=== PATIENT | male | born 1945 | race Caucasian/White ===

== ENCOUNTER 2025-04-13 10:57 | Inpatient (IN) | payer MEDICARE, MEDICAID ==
[2025-04-13] VITALS (10 sets, daily range): BP systolic 134–159; BP diastolic 66–87; PULSE 67–97; RESP 17–20; TEMP 36.1–37.1; O2SAT 93–100
[~2025-04-13] VITALS: Ht 170.2 cm; Wt 81.8 kg
[~2025-04-13 10:57] MED LIST: ALBU2.5V13 NEB; APIX5TAB PO; ASPI-1406 PO; ATOR40TA70 PO; ATROV IH; CLOP75TA33 PO; COR3 PO; MOME13HF11 INH; P20 MT; PARO40TA75 PO; RANO500T6 PO; SACU1TAB7 PO; TAMS-54 MT
[2025-04-13] MEDS ORDERED: CLONIDINE 0.1MG TABLET PO PRN (13:00)
[2025-04-13] MEDS ORDERED: ACETAMINOPHEN 325MG TABLET PO PRN (13:00)
[2025-04-13] MEDS ORDERED: ONDANSETRON HCL 4MG/2ML INJ IV PRN (13:00)
[2025-04-13] MEDS ORDERED: LORAZEPAM 0.5MG TABLET PO PRN (13:00)
[2025-04-13] MEDS ORDERED: GUAIFENESIN 200MG/10ML SUGAR FREE UDC PO PRN (13:00)
[2025-04-13] MEDS ORDERED: RANO500T6 PO (13:42)
[2025-04-13] MEDS ORDERED: FURO40TA5 MT (13:42)
[2025-04-13] MEDS ORDERED: PHEN-815 MT (13:42)
[2025-04-13] MEDS ORDERED: ATOR40TA70 MT (13:42)
[2025-04-13] MEDS ORDERED: APIX5TAB MT (13:42)
[2025-04-13] MEDS ORDERED: TAMS-54 MT (13:42)
[2025-04-13] MEDS ORDERED: INSU100I28 SQ (13:42)
[2025-04-13] MEDS ORDERED: FERR325T6 MT (13:42)
[2025-04-13] MEDS ORDERED: SACU1TAB7 MT (13:42)
[2025-04-13] MEDS ORDERED: ASPI-1497 MT (13:42)
[2025-04-13] MEDS ORDERED: MAGN400T50 MT (13:42)
[2025-04-13] MEDS ORDERED: POTA-203 MT (13:42)
[2025-04-13] MEDS ORDERED: PARO40TA75 MT (13:42)
[2025-04-13] MEDS ORDERED: GABA-1180 MT (13:42)
[2025-04-13] MEDS ORDERED: CLOP75TA33 MT (13:42)
[2025-04-13] MEDS ORDERED: PANT40TA51 MT (13:42)
[2025-04-13] MEDS ORDERED: METF-416 MT (13:42)
[2025-04-13] MEDS ORDERED: INSU100I41 (13:42)
[2025-04-13] MEDS ORDERED: CALC-26 MT (13:42)
[2025-04-13] MEDS ORDERED: CARV25TA47 MT (13:42)
[2025-04-13] MEDS ORDERED: OMEP20CA14 MT (13:42)
[2025-04-13] MEDS ORDERED: MELO-104 MT (13:42)
[2025-04-13] MEDS ORDERED: IPRA3AMP9 HHN (14:01)
[2025-04-13 15:02] LABS: BASOPHILS % 0.9 % (0.0-2.0); EOSINOPHILS % 1.1 % (0.0-5.0); HEMATOCRIT. 24.6 % (42.0-52.0); HEMOGLOBIN. 7.8 g/dL (14.0-18.0); LYMPHOCYTES % 30.2 % (20.0-50.0); MEAN CORPUSCULAR HEMOGLOBIN 29.3 pg (28.0-32.0); MEAN CORPUSCULAR HGB CONC 31.8 g/dL (31.0-37.0); MEAN CORPUSCULAR VOLUME 92.2 fL (80.0-94.0); MEAN PLATELET VOLUME 7.1 fl (7.4-10.4); MONOCYTES % 7.3 % (2.0-8.0); NEUTROPHILS % 60.5 % (40.0-76.0); PLATELET 113 x1000/uL (130-400); RED BLOOD CELL COUNT 2.67 mill/uL (4.7-6.1); RED CELL DISTRIBUTION WIDTH 17.4 % (11.6-14.6); WHITE BLOOD COUNT 2.7 x1000/uL (4.5-11.0)
[2025-04-13 15:11] LABS: CHLORIDE 110 mEq/L (98-107); POTASSIUM 4.1 mEq/L (3.5-5.1); SODIUM 141 mEq/L (136-145)
[2025-04-13 15:12] LABS: CARBON DIOXIDE 26 mEq/L (21-32); INR 1.1; PROTHROMBIN TIME 11.5 sec (9.6-11.0)
[2025-04-13 15:13] LABS: CALCIUM 7.3 mg/dL (8.7-10.4)
[2025-04-13] MEDS ORDERED: DEXTROSE 50% WATER 50ML SYRINGE IV PRN (15:15)
[2025-04-13 15:17] LABS: CREATININE 0.8 mg/dL (0.6-1.3); GLUCOSE 156 mg/dL (70-105)
[2025-04-13 15:18] LABS: UREA NITROGEN BLOOD 11 mg/dL (9-23)
[2025-04-13 15:20] LABS: PHOSPHORUS 1.2 mg/dL (2.5-4.9)
[2025-04-13 16:08] LABS: HEPATITIS B SURFACE ANTIGEN NEGATIVE (Negative)
[2025-04-13] MEDS: DEXT 5%/0.45% NACL 1000ML 1,000 ML IV SCH (16:22)
[2025-04-13] MEDS: BLOOD SUGAR DIAGNOSTIC STRIP TEST SCH (16:23)
[2025-04-13] MEDS: INSULIN LISPRO 100 UNITS/ML SUBCUT SCH (16:23)
[2025-04-13 16:29] LABS: HEPATITIS C AB NON REACTIVE (Neg) (Negative)
[2025-04-13] MEDS ORDERED: LIDOCAINE HCL 1% 20ML VIAL ONE (17:08)
[2025-04-13] MEDS ORDERED: IODIXANOL 320 MG/ML 150ML BOTTLE IV ONE (17:08)
[2025-04-13] MEDS ORDERED: HEPARIN 1000 UNITS/ML 10ML ONE (17:08)
[2025-04-13] MEDS ORDERED: FENTANYL CITRATE/PF 50MCG/ML 2ML VIAL ONE (17:35)
[2025-04-13] MEDS ORDERED: MIDAZOLAM HCL 2 MG/2 ML VIAL ONE (17:35)
[2025-04-13] MEDS ORDERED: ATROPINE SULFATE 1MG/10ML SYR ONE (17:41)
[2025-04-13] MEDS ORDERED: EPINEPHRINE 0.1MG/ML (1:10,000) 10ML SYR ONE (17:41)
[2025-04-13] MEDS ORDERED: IODIXANOL 320MG/ML 100 ML BOTTLE IV ONE (18:03)
[2025-04-13] MEDS ORDERED: CLOPIDOGREL 75MG TABLET ONE (18:29)
[2025-04-13 18:53] LABS: TROPONIN I HIGH SENSITIVITY 13 ng/L (3.0-53)
[2025-04-13] MEDS ORDERED: ATROPINE SULFATE 1MG/10ML SYR IV PRN (19:00)
[2025-04-13] MEDS: SODIUM CHLORIDE 0.45% 1,000 ML IV ONE (19:52)
[2025-04-13] MEDS: IPRATROPIUM/ALBUTEROL 0.5-3(2.5)MG/3ML NEB HHN PRN (20:23)
[2025-04-13] MEDS ORDERED: MAGNESIUM 2 G PREMIX 50 ML IV NR (23:30)
[2025-04-13 23:38] LABS: HEMATOCRIT 23.1 % (42.0-52.0); HEMOGLOBIN 7.7 g/dL (14.0-18.0)
[2025-04-13] MEDS: LIDOCAINE 5% PATCH TOP NR (23:38)
[2025-04-13 23:53] LABS: TROPONIN I HIGH SENSITIVITY 35 ng/L (3.0-53)
[2025-04-14] VITALS (10 sets, daily range): BP systolic 114–158; BP diastolic 55–99; PULSE 70–95; RESP 19–22; TEMP 36.6–37.3; O2SAT 95–100
[2025-04-14] MEDS: ACETAMINOPHEN 325MG TABLET PO PRN (01:14)
[2025-04-14] MEDS: SODIUM PHOSPHATE 30 MMOL in DEXT 5% WATER 490 ML IV NR (01:23)
[2025-04-14] MEDS: HYDROCODONE/ACETAMINOPHEN 5/325MG TABLET PO NR (04:19)
[2025-04-14] MEDS: CARVEDILOL 3.125 MG TABLET PO NR (04:20)
[2025-04-14 07:07] LABS: BASOPHILS % 0.4 % (0.0-2.0); HEMATOCRIT. 21.8 % (42.0-52.0); HEMOGLOBIN. 7.2 g/dL (14.0-18.0); MEAN CORPUSCULAR HEMOGLOBIN 28.5 pg (28.0-32.0); MEAN CORPUSCULAR VOLUME 86.5 fL (80.0-94.0); MONOCYTES % 6.9 % (2.0-8.0); NEUTROPHILS % 66.7 % (40.0-76.0); PLATELET 119 x1000/uL (130-400); RED BLOOD CELL COUNT 2.52 mill/uL (4.7-6.1); RED CELL DISTRIBUTION WIDTH 16.7 % (11.6-14.6)
[2025-04-14 07:18] LABS: CARBON DIOXIDE 25 mEq/L (21-32); CHLORIDE 109 mEq/L (98-107); POTASSIUM 3.8 mEq/L (3.5-5.1); SODIUM 139 mEq/L (136-145)
[2025-04-14 07:20] LABS: CALCIUM 7.1 mg/dL (8.7-10.4)
[2025-04-14 07:23] LABS: CREATININE 0.8 mg/dL (0.6-1.3)
[2025-04-14 07:24] LABS: GLUCOSE 134 mg/dL (70-105); UREA NITROGEN BLOOD 9 mg/dL (9-23)
[2025-04-14] MEDS: CLOPIDOGREL 75MG TABLET PO SCH (08:11)
[2025-04-14] MEDS: CARVEDILOL 3.125 MG TABLET PO SCH (08:11)
[2025-04-14] MEDS: FUROSEMIDE 20MG TABLET PO SCH (10:03)
[2025-04-14] MEDS: ATORVASTATIN CALCIUM 40MG TABLET PO SCH (21:33)
[2025-04-15] VITALS: BP 137/70; PULSE 72; RESP 22; TEMP 37; O2SAT 99
[2025-04-15 04:00] VITALS: BP 134/65; PULSE 79; RESP 21; TEMP 36.4; O2SAT 98
[2025-04-15 08:00] VITALS: BP 130/61; PULSE 100; PULSE 74; RESP 23; TEMP 36.8; O2SAT 100
[2025-04-15 10:36] VITALS: BP 130/61; PULSE 73; TEMP 98.2; O2SAT 98
[2025-04-15 12:00] VITALS: PULSE 80; RESP 19; O2SAT 100
== END 2025-04-15 17:34 | disposition home or self-care (01) | DRG 321 ==
LOC: 7WST 12:01 → 3WST 18:09
PROVIDERS: ADMIT Internal Medicine; ATTEND Internal Medicine
PROC: 027034Z Dilation of Coronary Artery, One Artery with Drug-eluting Intraluminal Device, Percutaneous Approach (ICD-10-PCS; principal; 2025-04-13)
PROC: 4A023N7 Measurement of Cardiac Sampling and Pressure, Left Heart, Percutaneous Approach (ICD-10-PCS; 2025-04-13)
PROC: B2111ZZ Fluoroscopy of Multiple Coronary Arteries using Low Osmolar Contrast (ICD-10-PCS; 2025-04-13)
PROC: B2151ZZ Fluoroscopy of Left Heart using Low Osmolar Contrast (ICD-10-PCS; 2025-04-13)
PROC: B240ZZ3 Ultrasonography of Single Coronary Artery, Intravascular (ICD-10-PCS; 2025-04-13)
DX: T82.855A Stenosis of coronary artery stent, initial encounter (principal); I21.4 Non-ST elevation (NSTEMI) myocardial infarction; I50.23 Acute on chronic systolic (congestive) heart failure; I11.0 Hypertensive heart disease with heart failure; E78.5 Hyperlipidemia, unspecified; E11.9 Type 2 diabetes mellitus without complications; J44.9 Chronic obstructive pulmonary disease, unspecified; Z79.4 Long term (current) use of insulin; Z85.118 Personal history of other malignant neoplasm of bronchus and lung; Z87.891 Personal history of nicotine dependence; Z90.2 Acquired absence of lung [part of]
CPT/HCPCS: 36415; 71045; 80048; 82962; 83735; 84100; 84484; 85014; 85018; 85025; 85347; 86705; 86850; 86900; 87340; 92928; 92978; 93458; 94070; 94640; 94664; 98960; C1725; C1753; C1769; C1874; C1887; C1893; J0461; J1644; J2250; J3010; J3490; J7060; Q9967